=== PATIENT | male | born 2000 | race Caucasian/White ===

== ENCOUNTER 2024-07-05 18:26 | Emergency (ER) | payer OTHER ==
[~2024-07-05] VITALS: Ht 188 cm; Wt 72.3 kg
[2024-07-05 18:29] VITALS: TEMP 97
[2024-07-05] MEDS ORDERED: NS 1,000 ML IV ONE (18:45)
[2024-07-05 18:58] LABS: BASO % 0.6 % (0.0-2.0); EOS # 0.2 K/mm3 (0.0-0.7); EOS % 3.2 % (0.0-4.0); GRAN # 4.2 K/mm3 (1.4-6.5); GRAN % 61.3 % (42.2-75.2); HEMOGLOBIN 11.5 g/dl (13.5-18.0); LYMPH # 1.5 K/mm3 (1.2-3.4); LYMPH % 21.3 % (20.0-51.0); MEAN CELL VOLUME 79 fl (80.0-100.0); MEAN CORPUSCULAR HEMOGLOBIN 26 pg (27-31); MEAN CORPUSCULAR HGB CONC 33 g/dl (33.0-37.0); MEAN PLATELET VOLUME 9.2 fl (7.4-10.4); MONO # 0.9 K/mm3 (0.1-0.6); MONO % 13.5 % (1.7-9.3); PLATELET COUNT 389 K/mm3 (130-400); RED BLOOD COUNT 4.45 M/mm3 (4.20-5.60); REDCELL DISTRIBUTION WIDTH-CV 12.9 % (11.5-14.5)
[2024-07-05 19:00] LABS: HEMATOCRIT 35.2 % (42.0-52.0)
[2024-07-05 19:17] LABS: BILIRUBIN,TOTAL 0.2 mg/dL (0.2-1.2); C-REACTIVE PROTEIN 7.52 mg/dL (0.00-0.50); CALCIUM 8.8 mg/dL (8.4-10.2); CREATININE, serum 0.77 mg/dL (0.72-1.25); POTASSIUM 3.6 mEq/L (3.5-4.5); TOTAL PROTEIN 7.7 g/dl (6.2-8.1)
[2024-07-05 20:06] LABS: URINE APPEARANCE CLEAR (CLEAR/HAZY); URINE BLOOD NEGATIVE (NEGATIVE); URINE COLOR YELLOW (YELLOW); URINE GLUCOSE NEGATIVE (NEGATIVE); URINE KETONE TRACE (NEGATIVE); URINE NITRATE NEGATIVE (NEGATIVE); URINE PROTEIN(semi-quant) TRACE (NEGATIVE); URINE UROBILINOGEN 0.2 E.U/dL (0.2-1.0)
[2024-07-05 20:07] LABS: COLLECTION METHOD CLEAN CATCH
[2024-07-05] MEDS ORDERED: Iohexol 300 - 100 ML VIAL IV ONE (20:51)
[2024-07-05] MEDS ORDERED: NS 100 ML IV ONE (20:51)
[2024-07-05] MEDS ORDERED: NORCO 325 MG-51 TAB PO (21:53)
[2024-07-05] MEDS ORDERED: Home HYDROcodone/Acetaminophen 5/325 MG #4 TABS/PACK PO ONE (22:00)
[2024-07-05 22:10] VITALS: BP 115/60; PULSE 66
[2024-07-06 14:41] LABS: CLOSTRIDIUM DIFF A/B POS
[2024-07-06] MEDS ORDERED: VANCOCIN H125 MG/CAP PO (17:28)
== END 2024-07-05 22:10 | disposition home or self-care (01) ==
LOC: COL.ER 18:26
PROVIDERS: Nurse Practitioner
DX: K52.9 Noninfective gastroenteritis and colitis, unspecified (principal)
CPT/HCPCS: J7030; Q9967